=== PATIENT | male | born 1995 | race American Indian/Alaskan Native ===

== ENCOUNTER 2021-04-23 14:05 | Emergency (ER) | payer SELFPAY ==
[2021-04-23] MEDS ORDERED: levETIRAcetam 1000 MG/NS 0.75% 1,000 MG/100 ML BAG IV ONE (14:18)
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
[2021-04-23 15:05] LABS: Basophils % (Auto) 0.6 % (0.0-1.8); Eosinophils # (Auto) 0.1 K/mm3 (0.0-0.4); Eosinophils % (Auto) 1.6 % (0.0-4.3); Hematocrit 46.7 % (35.5-45.6); Hemoglobin 15.5 gm/dl (11.8-15.2); Lymphocytes % (Auto) 49.1 % (13.4-35.0); Mean Corpuscular HGB Conc 33 % (32-34); Mean Corpuscular Volume 85 fl (84-94); Monocytes # (Auto) 0.3 K/mm3 (0.0-0.8); Monocytes % (Auto) 6.6 % (0.0-7.3); Platelet Count 192 K/mm3 (140-440); Red Blood Count 5.47 M/mm3 (3.65-5.03); Red Cell Distribution Width 14.7 % (13.2-15.2)
[2021-04-23 15:16] LABS: BUN/Creatinine Ratio 9; Blood Urea Nitrogen 8 mg/dL (9-20); Calcium 9.4 mg/dL (8.4-10.2); Hemolysis Index 6
[2021-04-23] MEDS ORDERED: KETOROLAC 30 MG/1 ML INJ IV ONE (17:05)
[2021-04-23 17:27] VITALS: BP 124/62
== END 2021-04-23 17:26 | disposition home or self-care (01) ==
LOC: ED 14:05
DX: G40.909 Epilepsy, unspecified, not intractable, without status epilepticus (principal); Z79.899 Other long term (current) drug therapy
CPT/HCPCS: 36415; 80048; 83735; 85025; 96365; 96375; 99284; J1953

== ENCOUNTER 2021-10-09 14:34 | Emergency (ER) | payer SELFPAY ==
[2021-10-09] MEDS ORDERED: TETANUS,DIPH,PERTUSS(ACELL) VACCINE 0.5 ML SYRINGE IM ONE (14:50)
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
[2021-10-09 15:48] VITALS: BP 131/80
== END 2021-10-09 15:15 | disposition home or self-care (01) ==
LOC: ED 14:34
DX: T23.209A Burn of second degree of unspecified hand, unspecified site, initial encounter (principal); R56.9 Unspecified convulsions; Z87.891 Personal history of nicotine dependence; Z79.899 Other long term (current) drug therapy; X12.XXXA Contact with other hot fluids, initial encounter; Y93.89 Activity, other specified; Y92.89 Other specified places as the place of occurrence of the external cause; Y99.8 Other external cause status
CPT/HCPCS: 90471; 90715; 99282

== ENCOUNTER 2021-10-20 11:58 | Emergency (ER) | payer SELFPAY ==
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
[2021-10-20 13:38] VITALS: BP 121/82
[2021-10-20] MEDS ORDERED: HYDROcodone/ACETAMINOPHEN 5-325 MG TAB PO ONE (13:38)
== END 2021-10-20 15:29 | disposition home or self-care (01) ==
LOC: ED 11:58
DX: T23.201D Burn of second degree of right hand, unspecified site, subsequent encounter (principal); T23.202D Burn of second degree of left hand, unspecified site, subsequent encounter; Z87.891 Personal history of nicotine dependence; Z79.899 Other long term (current) drug therapy; X08.8XXD Exposure to other specified smoke, fire and flames, subsequent encounter
CPT/HCPCS: 99282; 99283